=== PATIENT | female | born 1960 | race Two or more races ===

== ENCOUNTER 2020-07-01 08:34 | Outpatient (CLI) | payer OTHER | END 2020-07-01 08:42 | disposition home or self-care (01) | LOC: MRI 08:34 | PROVIDERS: ATTEND Specialist | DX: K86.2 Cyst of pancreas (principal); R94.5 Abnormal results of liver function studies | CPT/HCPCS: 74181 ==

== ENCOUNTER 2021-01-04 11:26 | Outpatient (CLI) | payer OTHER | END 2021-01-04 11:59 | disposition home or self-care (01) | LOC: MRI 11:26 | PROVIDERS: ATTEND Internal Medicine Gastroenterology | DX: K86.2 Cyst of pancreas (principal) | CPT/HCPCS: 74181 ==